=== PATIENT | female | born 1955 | race Two or more races ===

== ENCOUNTER 2016-08-03 02:00 | Emergency (ER) | payer MEDICAID ==
[~2016-08-03] VITALS: Ht 167.6 cm; Wt 73.9 kg
[2016-08-03 02:05] VITALS: BP 138/72
[2016-08-03 03:04] LABS: BASOPHILS % (AUTO) 1.2 % (0.0-2.0); EOSINOPHILS % (AUTO) 5.4 % (0.0-3.0); LYMPHOCYTES % (AUTO) 16.9 % (20.0-45.0); MEAN CORPUSCULAR HEMOGLOBIN 31.6 PG (27.0-31.0); MEAN CORPUSCULAR HGB CONC 34.4 G/DL (32.0-36.0); MEAN CORPUSCULAR VOLUME 92 FL (80-99); MEAN PLATELET VOLUME 7.5 FL (6.5-10.1); MONOCYTES % (AUTO) 5.3 % (1.0-10.0); NEUTROPHILS % (AUTO) 71.1 % (45.0-75.0); PLATELET COUNT 179 K/UL (150-450); RED BLOOD COUNT 4.84 M/UL (4.20-5.40); RED CELL DISTRIBUTION WIDTH 11.4 % (11.6-14.8); WHITE BLOOD COUNT 4.9 K/UL (4.8-10.8)
[2016-08-03] MEDS ORDERED: LORazepam Inj 2mg/ml 1ml IV ONE (03:15)
[2016-08-03 03:35] LABS: ALANINE AMINOTRANSFERASE 8 U/L (3-33); ALBUMIN/GLOBULIN RATIO 1.4 (1.0-2.7); ANION GAP 19 (5-15); ASPARTATE AMINO TRANSFERASE 16 U/L (5-40); CALCIUM 6.8 mg/dL (8.6-10.2); CARBON DIOXIDE 17 mEQ/L (20-30); CHLORIDE 102 mEQ/L (98-107); CREATININE 0.6 mg/dL (0.5-0.9); GLOMERULAR FILTRATION RATE > 60 mL/min (>60); HEMOLYSIS 30; POTASSIUM 3.4 mEQ/L (3.4-4.9); SODIUM 138 mEQ/L (135-145); TOTAL PROTEIN 5.4 g/dL (6.6-8.7); VALPROIC ACID < 3 ug/mL (50-100)
[2016-08-03] MEDS ORDERED: Phenytoin 1,000 MG in NS 275 ML IVPB ONE (03:45)
[2016-08-03] MEDS ORDERED: Phenytoin 250mg/5ml vial ONE (03:53)
[2016-08-03] MEDS ORDERED: DILANTIN100 MG ORAL (04:06)
[2016-08-03 04:40] VITALS: BP 116/70
[2016-08-03 05:24] VITALS: BP 116/70
--- NOTE | 2016-08-03 06:58 | Emergency Room Report ---
History of Present Illness General Chief Complaint: Seizure Source: Patient Present Illness HPI Patient is a 61-year-old female presented after increased seizure activity at home. Patient brought in by EMS after a witnessed tonic-clonic seizure. The patient denied any recent locations of pain. The patient reportedly been taking Dilantin for seizures. The patient denied any severe pain to any location this time. She reports being compliant with her medications. Allergies: Coded Allergies: No Known Allergies (Unverified , 08/03/16) Patient History Past Medical History: see triage record, seizures Last Menstrual Period: n/a Reviewed Nursing Documentation: PMH: Agreed, PSxH: Agreed Nursing Documentation-PM Past Medical History: No History, Except For Hx Seizures: Yes Review of Systems All Other Systems: negative except mentioned in HPI Physical Exam Vital Signs Date Time Temp Pulse Resp B/P Pulse Ox O2 Delivery O2 Flow Rate FiO2 08/03/16 02:01 98.2 78 16 138/72 99 Room Air Sp02 EP Interpretation: reviewed, normal General Appearance: normal inspection, well appearing, no apparent distress, alert, GCS 15, non-toxic Head: normocephalic, atraumatic ENT: normal ENT inspection, hearing grossly normal, normal voice Neck: normal inspection, full range of motion, supple, no bony tend Respiratory: normal inspection, lungs clear, normal breath sounds, no respiratory distress, no retraction, no wheezing Cardiovascular #1: regular rate, rhythm, no edema Gastrointestinal: normal inspection, normal bowel sounds, non tender, soft, no guarding, no hernia Genitourinary: no CVA tenderness Musculoskeletal: normal inspection, back normal, normal range of motion Neurologic: normal inspection, alert, responsive, speech normal Psychiatric: normal inspection, judgement/insight normal, mood/affect normal Skin: normal inspection, normal color, no rash Medical Decision Making Diagnostic Impression: Primary Impression: Epileptic seizure, generalized Additional Impression: Subtherapeutic serum dilantin level ER Course Presented for seizure. Differential diagnosis included cysticercosis, electrolyte abnormality, mass lesion, or cranial hemorrhage. Because of complexity of patient's case laboratory studies were ordered. Patient was given IV Dilantin after patient's Dilantin level was noted to be low. The patient is advised to follow up with primary care doctor in 1-2 days. Patient is advised to return if any worsening condition or if any changes in status that are concerning. Labs Test 08/03/16 02:45 White Blood Count 4.9 K/UL (4.8-10.8) Red Blood Count 4.84 M/UL (4.20-5.40) Hemoglobin 15.3 G/DL (12.0-16.0) Hematocrit 44.4 % (37.0-47.0) Mean Corpuscular Volume 92 FL (80-99) Mean Corpuscular Hemoglobin 31.6 PG (27.0-31.0) Mean Corpuscular Hemoglobin Concent 34.4 G/DL (32.0-36.0) Red Cell Distribution Width 11.4 % (11.6-14.8) Platelet Count 179 K/UL (150-450) Mean Platelet Volume 7.5 FL (6.5-10.1) Neutrophils (%) (Auto) 71.1 % (45.0-75.0) Lymphocytes (%) (Auto) 16.9 % (20.0-45.0) Monocytes (%) (Auto) 5.3 % (1.0-10.0) Eosinophils (%) (Auto) 5.4 % (0.0-3.0) Basophils (%) (Auto) 1.2 % (0.0-2.0) Sodium Level 138 mEQ/L (135-145) Potassium Level 3.4 mEQ/L (3.4-4.9) Chloride Level 102 mEQ/L (98-107) Carbon Dioxide Level 17 mEQ/L (20-30) Anion Gap 19 (5-15) Blood Urea Nitrogen 10 mg/dL (7-23) Creatinine 0.6 mg/dL (0.5-0.9) Estimat Glomerular Filtration Rate > 60 mL/min (>60) Glucose Level 124 mg/dL (74-106) Calcium Level 6.8 mg/dL (8.6-10.2) Total Bilirubin < 0.2 mg/dL (0.0-1.2) Aspartate Amino Transf (AST/SGOT) 16 U/L (5-40) Alanine Aminotransferase (ALT/SGPT) 8 U/L (3-33) Alkaline Phosphatase 81 U/L (35-104) Total Protein 5.4 g/dL (6.6-8.7) Albumin 3.2 g/dL (3.5-5.2) Globulin 2.2 g/dL Albumin/Globulin Ratio 1.4 (1.0-2.7) Phenytoin (Dilantin) Level 2.5 ug/mL (10-20) Valproic Acid (Depakene) Level < 3 ug/mL (50-100) Phenobarbital Level < 2.4 ug/mL (20.0-40.0) Last Vital Signs Date Time Temp Pulse Resp B/P Pulse Ox O2 Delivery O2 Flow Rate FiO2 08/03/16 05:24 98.2 68 16 116/70 99 Room Air Status: improved Disposition: HOME, SELF-CARE Condition: Stable Scripts Phenytoin Sodium Extended* (DILANTIN*) 100 Mg Capsule 300 MG ORAL BEDTIME, #90 CAP Prov: Elijah Valencia 08/03/16 Referrals: NON PHYSICIAN (PCP) Patient Instructions: Seizure, Adult Elijah Valencia August 03, 2016 06:58
--- NOTE | 2016-08-03 15:57 | Cardiology Report ---
APPROVED REPORT EKG Measurement Heart [id number] Sinus rhythm with 1st degree AV block Otherwise normal ECG
== END 2016-08-03 05:24 | disposition home or self-care (01) ==
LOC: EDBD 02:00 → EMR 02:20
DX: G40.409 Other generalized epilepsy and epileptic syndromes, not intractable, without status epilepticus (principal); Z79.899 Other long term (current) drug therapy
CPT/HCPCS: 36415; 80053; 80164; 80184; 80185; 82962; 85025; 93005; 96360; 96374; 99284; J1165; J7050